=== PATIENT | female | born 1975 ===

== ENCOUNTER 2019-10-07 09:06 | Emergency (ER) | payer OTHER ==
--- NOTE | 2019-10-07 09:35 | UC ---
Ear Complaint HPI - HPI Summary HPI Summary: CHIEF COMPLAINT and HPI: This is a healthy 43-year-old female with a bilateral ear discomfort for 7 days. The left ear feels more muffled than the right. She did try to clean her left ear with a Q-tip one week ago. She denies any recent colds. Her past medical history is unremarkable with the exception of hypertension in . Description of Pain: Intensity:very mild Location:left ear Radiation:nonradiating Type:feeling that sound is muffled Variation:. No variation VITAL SIGNS & SaO2 REVIEWED. Within normal limits unless noted here.136/86. Discussed with patient. NURSES NOTE REVIEWED. "Pt c/o "muffled feeling in L ear. Pt states was cleaning ear 1 week ago and pushed q-tip too far. Stated mild pain in L ear as well." - History of Current Complaint Chief Complaint: UCEar Stated Complaint: EAR COMPLAINT Time Seen by Provider: 10/07/19 09:09 Hx Last Menstrual Period: 09/26/19 Pain Intensity: 1 - Allergies/Home Medications Allergies/Adverse Reactions: Allergies Allergy/AdvReac Type Severity Reaction Status Date / Time No Known Allergies Allergy Verified 10/07/19 09:12 Home Medications: Home Medications Cholecalciferol TAB* [Vitamin D TAB*] 2,000 units PO DAILY 10/07/19 [History Confirmed 10/07/19] Fenofibrate 40 mg PO DAILY 10/07/19 [History Confirmed 10/07/19] PMH/Surg Hx/FS Hx/Imm Hx - Additional Past Medical History Additional PMH: PAST MEDICAL HISTORY- hypertension in CHRONIC and RECURRENT HEALTH PROBLEM LIST REVIEWED. Information relevant to present complaint: none. VISIT HISTORY REVIEWED. MEDICATIONS & ALLERGIES REVIEWED. HYPERTENSION STATUS:no antihypertensive medications FAMILY HISTORY: cancer, hypertension SOCIAL HISTORY: Smoker: no Home:patient lives with her and son. Employment:does not work outside the home current time. Previously Healthy: Yes - Surgical History Surgical History: Yes Surgery Procedure, Year, and Place: - Social History Alcohol Use: None Substance Use Type: None Smoking Status (MU): Never Smoked Tobacco Review of Systems All Other Systems Reviewed And Are Negative: Yes Constitutional: Positive: Negative ENT: Positive: Ear Ache - left ear Respiratory: Positive: Negative Cardiovascular: Positive: Negative Gastrointestinal: Positive: Negative Is Patient Immunocompromised?: No Physical Exam - Summary Physical Exam Summary: Appearance: The patient is well-appearing, is in no pain or distress, and is well-nourished. Eyes: Conjunctiva are clear. Pupils are equal and reactive to light and accommodation. Extra ocular muscle movement is intact. ENT: The hearing is grossly normal, the pharynx is normal, and the TMs are not visualized because of bilateral cerumen impaction. There is no muffled or hoarse voice. No stridor. Neck: The neck is supple and there is no lymphadenopathy. Respiratory: The chest is non-tender to palpation and without crepitus. The lungs are clear, there are normal breath sounds, and there is no respiratory distress. No wheezes, rales or rhonchi. Cardiovascular: Heart sounds reveal a regular rate and rhythm. There are no clicks, rubs or murmurs. There are no carotid bruits or thrills. Circulation is grossly intact. Abdomen: The abdomen is soft and nontender. There is no organomegaly. Bowel sounds are present and within normal limits. No point tenderness at McBurneys point. No CVA tenderness. Musculoskeletal: Strength is intact. The patient moves all extremities. Neurological: The patient is alert. Motor and sensory are examination grossly intact. Speech is normal. Psychological: The patient displays age appropriate behavior, and is conversant. GCS=15. Skin: Negative for rashes. Nurse irrigated both ears; re-evaluation shows EAC cleared of wax; patient can hear clearly now. Triage Information Reviewed: Yes Vital Signs: Initial Vital Signs Temp 98.1 F 10/07/19 09:14 Pulse 96 10/07/19 09:14 Resp 16 10/07/19 09:14 BP 136/86 10/07/19 09:14 Pulse Ox 100 10/07/19 09:14 Ear Complaint Course/Dx - Course Course Of Treatment: This is a healthy 43-year-old female with a bilateral ear discomfort for 7 days. The left ear feels more muffled than the right. she did try to clean her left ear with a Q-tip. One week ago. She denies any recent colds. Her past medical history is unremarkable with the exception of hypertension in . physical examination shows bilateral/cerumen impaction. Blood pressure slightly elevated at 136/86. The nurse irrigated both ears. Canals cleared. Patient can hear more clearly. Dx: cerumen impaction, resolved post irrigation. - Differential Dx/Diagnosis Differential Diagnosis/HQI/PQRI: Cerumen Impaction Provider Diagnosis: Impacted cerumen of both ears Discharge ED - Sign-Out/Discharge Documenting (check all that apply): Patient Departure All imaging exams completed and their final reports reviewed: No Studies - Discharge Plan Condition: Stable Disposition: HOME Referrals: No Primary Care Phys,NOPCP [Primary Care Provider] - Additional Instructions: WE DISCUSSED: PLEASE SEEK CARE AT THE EMERGENCY DEPARTMENT IF SYMPTOMS WORSEN OR IF NEW SYMPTOMS DEVELOP. FOLLOW UP WITH YOUR PRIMARY CARE PHYSICIAN IF CONDITION CONTINUES BEYOND 3 DAYS WITHOUT IMPROVEMENT. YOUR DIAGNOSIS IS:cerumen impaction YOUR PRESCRIPTION RECOMMENDATION IS:none. OTHER INSTRUCTIONS:. Keep ears clean with gentle water irrigation and your in the shower. Pat Mark's card given to find a provider. Hypertension Discharge Instructions: Your blood pressure reading today was 136/86 , indicating HYPERTENSION. Follow- up with your primary care provider within 4 weeks for blood pressure check and appropriate recommendations and treatment, as needed. FOR PAIN AND/OR SLEEP: For pain: Ibuprofen (Motrin and other brand names) 400-600mg PLUS acetaminophen (Tylenol and other brand names) 500mg - 1000mg every 8 hours. - Billing Disposition and Condition Condition: STABLE Disposition: Home
== END 2019-10-07 09:55 | disposition home or self-care (01) ==
LOC: UCEAST 09:06
DX: H61.23 Impacted cerumen, bilateral (principal); R03.0 Elevated blood-pressure reading, without diagnosis of hypertension
CPT/HCPCS: 99203; G0463